=== PATIENT | male | born 1955 | race Asian ===

== ENCOUNTER → 2023-09-13 06:47 | Outpatient (REF) | payer BC, SELFPAY | LOC: MRI 3T 06:47 | PROVIDERS: ATTENDING PHYSICIAN Orthopaedic Surgery; FAMILY PHYSICIAN Nurse Practitioner Family | DX: M25.569 Pain in unspecified knee (principal) | CPT/HCPCS: 73721 ==

== ENCOUNTER 2023-10-30 14:49 | Outpatient (RCR) | payer BC, OTHER, SELFPAY | END 2023-10-31 07:27 | disposition home or self-care (01) | LOC: RPT 14:49 | PROVIDERS: ATTENDING PHYSICIAN Physician Assistant Surgical; FAMILY PHYSICIAN Nurse Practitioner Family | DX: S83.281D Other tear of lateral meniscus, current injury, right knee, subsequent encounter (principal); S83.241D Other tear of medial meniscus, current injury, right knee, subsequent encounter; M17.11 Unilateral primary osteoarthritis, right knee; M76.891 Other specified enthesopathies of right lower limb, excluding foot; Z73.6 Limitation of activities due to disability; M25.561 Pain in right knee; M62.81 Muscle weakness (generalized); R26.89 Other abnormalities of gait and mobility | CPT/HCPCS: 97110; 97112; 97162; 97530 ==